=== PATIENT | male | born 1980 | race Caucasian/White ===

== ENCOUNTER 2020-05-04 11:01 | Emergency (ER) | payer OTHER ==
[2020-05-04 13:45] LABS: HEMOGLOBIN 15.7 gm/dl (14.0-17.5); RED BLOOD COUNT 4.52 M/UL (4.20-5.50); WHITE BLOOD COUNT 9.6 K/UL (4.5-11.0)
[2020-05-04 14:04] LABS: BUN/CREATININE RATIO 21 (0-10)
[2020-05-04] MEDS ORDERED: PREDNISONE20 MG PO (14:23)
== END 2020-05-04 14:50 | disposition home or self-care (01) ==
LOC: ER1 11:01
PROVIDERS: Physician Assistant
DX: R21 Rash and other nonspecific skin eruption (principal); I10 Essential (primary) hypertension; F17.210 Nicotine dependence, cigarettes, uncomplicated; Z79.899 Other long term (current) drug therapy
CPT/HCPCS: 80053; 85025; 85652; 86140; 87081; 87880; 99283